=== PATIENT | female | born 1960 | race Two or more races ===

== ENCOUNTER → 2016-11-17 | Outpatient (CLI) | payer BC, SELFPAY | END | disposition disaster alternative care site (69) | LOC: GRAD 11-15 11:00 | DX: R10.11 Right upper quadrant pain (principal) | CPT/HCPCS: A9537 ==

== ENCOUNTER → 2016-11-28 | Outpatient (CLI) | payer BC | END | disposition disaster alternative care site (69) | LOC: LHSC 10:54 | DX: K80.44 Calculus of bile duct with chronic cholecystitis without obstruction (principal) ==